=== PATIENT | male | born 1975 | race Caucasian/White ===

== ENCOUNTER 2019-08-30 14:54 | Emergency (ER) | payer OTHER, SELFPAY ==
--- NOTE | 2019-08-30 14:55 | NURSING ---
NO OLD EKGS
[2019-08-30 14:56] VITALS: BP 187/96; PULSE 87; PULSE 88; RESP 18; TEMP 36.6; O2SAT 97; BMI 29.7
--- NOTE | 2019-08-30 15:09 | EKG12_ITS ---
Test Reason : CP Blood Pressure : / mmHG Vent. Rate : 087 BPM Atrial Rate : 087 BPM P-R Int : 140 ms QRS Dur : 070 ms QT Int : 338 ms P-R-T Axes : 039 -07 033 degrees QTc Int : 406 ms Normal sinus rhythm with sinus arrhythmia Nonspecific ST abnormality Abnormal ECG Confirmed by NILAY LEAVITT ([id number]), fashion editor ROXANA SPENCE ([id number]) on 08/31/2019 2:55:05 PM Referred By: RADHA/VENU Confirmed By:NILAY LEAVITT
--- NOTE | 2019-08-30 15:10 | ED.VIS.GEN ---
History of Present Illness Chief Complaint: Chest Pain Informant: Patient Onset: Days Context: Gradual Onset Timing: Intermittent Current Severity: Mild Maximum Severity: Mild Narrative: Patient presents with intermittent chest pain for the past couple of days. He states he gets intermittent pain mostly to the right pectoral region. It is sharp and lasts only a few seconds. He is also had some intermittent pain down his left arm. It is not necessarily correlate with the chest pain. He denies shortness of breath. Has had some mild congestion with minimal cough recently. He denies personal history of cardiac history. He denies recent change in activity tolerance. Patient also reports several month history of rare, intermittent episodes of lightheadedness and off balance. He thought it was either secondary to vertigo or low blood sugar. - Past Medical History (1) Kidney stones Status: Resolved Past Medical History - Allergies and Home Meds Allergies/Adverse Reactions: Allergies No Known Allergies Allergy (Verified 08/30/19 14:54) Primary Care Physician: Care Physician,No Primary [Primary Care Provider] - Prior records reviewed: Yes Smoking Status: Never smoker Review of Systems General: Denies: Chills, Fever Eyes: Denies: Visual changes - bilaterally ENT: Denies: Bilateral ear pain Cardiovascular: Reports: Chest pain. Denies: Palpitations, Heart racing Respiratory: Reports: Cough. Denies: Dyspnea Gastrointestinal: Denies: Abdominal pain, Nausea, Vomiting, Diarrhea Genitourinary: Denies: Dysuria Skin: Denies: Rash Neurological: Denies: Headache, Weakness Psych: Denies: Depression Hematologic: Denies: Easy bruising Allergy: Denies: Uticaria Physical Exam Vital Signs/Narrative: Vital Signs Temp Pulse Resp BP Pulse Ox 08/30/19 14:56 97.8 F 87 18 187/96 H 97 Inital Vital Signs reviewed: Yes General: Well nourished, Well developed Head: Normocephalic ENT: Moist mucous membranes Neck: Supple, - - No midline cervical tenderness. Mild tenderness in the left cervical paraspinal muscles. Cardiovascular: Regular rate, Regular rhythm Respiratory: No distress, CTA bilaterally, Chest nontender Abdomen: Soft, Nontender Extremities: Nontender Skin: Normal color, No rash Neurological: Alert, Oriented x3 Psychological: Normal affect Diagnostic/Tx/Re-eval Impressions Chest X-Ray 08/30/19 15:15 IMPRESSION: Normal x-ray examination of the chest. Electronically Signed: Nick Covington MD at 15:49 EST Tel , Service support , 08/30/19 15:15 Chest 1 View (Portable) [RAD] Stat Laboratory Results 08/30/19 08/30/19 08/30/19 15:00 15:00 15:00 WBC 7.9 RBC 5.70 Hgb 16.1 Hct 46.8 MCV 82.1 MCH 28.2 MCHC 34.4 RDW Std Deviation 39.5 RDW Coeff of Nomi 13.4 Plt Count 328 MPV 10.0 Immature Gran % (Auto) 0.300 Neut % (Auto) 61.4 Lymph % (Auto) 28.6 Kendall % (Auto) 6.7 Eos % (Auto) 2.6 Baso % (Auto) 0.4 Absolute Neuts (auto) 4.9 Absolute Lymphs (auto) 2.27 Nucleated RBC % 0 D-Dimer Quant (PE/DVT) 0.28 Sodium 140 Potassium 3.8 Chloride 107 Carbon Dioxide 30.0 Anion Gap 3 L BUN 15 Creatinine 1.23 Estim Creat Clear Calc 75.84 Est GFR (MDRD) Af Amer 82 Est GFR (MDRD) Non-Af 68 BUN/Creatinine Ratio 12.2 Glucose 100 Calcium 9.3 Troponin I < 0.015 - EKG Initial EKG Interpretation: Sinus Rhythm - Sinus 87 with no acute ischemia. - Medical Decision Making Patient was given aspirin on arrival here. Repeat evaluation is resting comfortably. Blood pressure is now 150/90. Patient will follow-up with Dr. Cook whom he had called today for an appointment. He was given return instructions. Symptoms been ongoing for several days with negative work-up at this point and pain sounds atypical for cardiac. ED Disposition - Plan for ED Patient: Disposition: Home or Assisted Living Diagnosis: Atypical chest pain Instructions: CHEST PAIN, Uncertain Cause Referrals: Francis Cook MD [NON-STAFF] - As soon as possible
--- NOTE | 2019-08-30 15:15 | RAD_ITS ---
STUDY: X-RAY CHEST REASON FOR EXAM: Male, 44 years old. patient complains chest pressure, left bicep pain TECHNIQUE: Single AP portable view of the chest. COMPARISON: None. FINDINGS: The lungs are clear and expanded. There is no demonstrated pleural abnormality. Normal size heart. Normal mediastinum and dilan. Normal visualized pulmonary arteries. Normal visualized aortic arch and descending thoracic aorta. Normal visualized thoracic spine. Normal visualized ribs, clavicles, and shoulders. There is no demonstrated abnormality of the visualized soft tissue structures of the upper abdomen. RAD/Chest 1 View (Portable) IMPRESSION: Normal x-ray examination of the chest. Electronically Signed: Nick Covington MD at 15:49 EST Tel , Service support ,
[2019-08-30 15:17] LABS: Absolute Lymphocyte Count 2.27 X10^3/uL (0.83-4.51); Absolute Neutrophil Count 4.9 X10^3/uL (2.0-7.7); Basophil# 0.03 X10^3/uL; Basophil% 0.4 % (0-1); Eosinophil# 0.21 X10^3/uL; Eosinophils% 2.6 % (0-5); Hematocrit 46.8 % (40-54); Hemoglobin 16.1 g/dL (13.0-16.5); Lymphocyte # 2.27 X10^3/ul (4.0); Lymphocyte % 28.6 % (19-41); Mean Corp Hgb Conc 34.4 g/dL (32-36); Mean Corpuscular Hgb 28.2 pg (27.0-32.0); Mean Corpuscular Volume 82.1 fL (80-94); Monocyte# 0.53 X10^3/uL; Monocyte% 6.7 % (0-10); NRBC Flagged by Analyzer 0 % (0-5); Neutrophil # 4.87 X10^3/uL (2.7-7.7); Neutrophil % 61.4 % (47-70); Platelet Count 328 K/mm3 (150-450); RBC Distribution Width CV 13.4 % (11.6-14.6); RBC Distribution Width SD 39.5 fl (35.1-43.9); White Blood Count 7.9 K/mm3 (4.4-11.0)
[2019-08-30 15:29] LABS: D-Dimer Quantitative (DVT/PE) 0.28 FEU/ug/m (0.27-0.49)
[2019-08-30 15:33] LABS: Anion Gap 3 (5-15); BUN 15 mg/dL (7-18); BUN/Creat Ratio 12.2 RATIO (10-20); Calcium,Total 9.3 mg/dL (8.5-10.1); Chloride 107 mmol/L (98-107); Creatinine, Serum 1.23 mg/dL (0.70-1.30); EST Glomerular Filtration Rate 68 mL/min (>60); Est Glom Filt Rate - Afr Amer 82 mL/min (>60); Estimated Creatinine Clearance 75.84 ml/min; Glucose 100 mg/dL (74-106); Potassium 3.8 mmol/L (3.5-5.1); Sodium Level 140 mmol/L (136-145)
[2019-08-30 16:15] VITALS: BP 151/91; PULSE 77; PULSE 78; RESP 13; RESP 14; O2SAT 97; O2SAT 98
== END 2019-08-30 16:22 | disposition home or self-care (01) ==
PROVIDERS: Emergency Provider Emergency Medicine
DX: R07.89 Other chest pain (principal)
CPT/HCPCS: 71045; 80048; 84484; 85025; 85379; 93005; 99284

== ENCOUNTER 2021-06-26 15:15 | Outpatient (CLI) | payer OTHER, SELFPAY ==
[2021-06-26 15:38] VITALS: BP 151/95; PULSE 90; RESP 16; TEMP 37.1; O2SAT 99; BMI 29.5
[2021-06-26] MEDS: 0.9% Saline Lock 10 ML Syringe IV (15:39)
[2021-06-26 16:23] VITALS: BP 142/92; PULSE 87; RESP 16; TEMP 36.7; O2SAT 100
[2021-06-26 17:14] VITALS: BP 146/92; PULSE 76; RESP 16; TEMP 36.9; O2SAT 99
== END 2021-06-26 17:26 | disposition home or self-care (01) ==
LOC: MS3OUT 15:15 → MS3 15:16
PROVIDERS: Referring Provider Nurse Practitioner Adult Health; Visit Provider Nurse Practitioner Adult Health
DX: U07.1 COVID-19 (principal)
CPT/HCPCS: J7050; M0245; Q0245; A4216